=== PATIENT | female | born 1970 | race Caucasian/White ===

== ENCOUNTER 2019-06-16 13:17 | Emergency (ER) | payer OTHER ==
[2019-06-16 13:21] VITALS: BP 135/63; PULSE 74; TEMP 98; BMI 31.2
[2019-06-16] MEDS ORDERED: KETOROLAC TROMETHAMINE 30 MG/1 ML VIAL IM ONE (13:23)
[2019-06-16] MEDS ORDERED: METHOCARBAMOL 500 MG TABLET PO ONE (13:23)
--- NOTE | 2019-06-16 13:23 | PDOC ---
Rapid Medical Evaluation Chief Complaint: Pain, Acute Time Seen by Provider: 06/16/19 13:20 Medical Evaluation: 06/16/19 13:20 I have performed a brief in-person evaluation of this patient. The patient presents with a chief complaint of: RT arm pain since yesterday w/o trauma or injury. Pt took advil this AM for pain. report pain started after doing house cleaning Pertinent physical exam findings: mild tenderness over lateral deltoid muscle of RT upper arm. no shoulder or forearm tenderness. I have ordered the following: Toradol 30mg IM, Robaxin 500mg PO The patient will proceed to the ED for further evaluation. 06/16/19 13:22 Discharge Disposition - Diagnosis Right arm pain - Discharge Dispostion Condition at time of disposition: Stable - Referrals - Patient Instructions - Post Discharge Activity
[2019-06-16] MEDS ORDERED: KETOROLAC TROMETHAMINE 30 MG/1 ML VIAL ONE (14:38)
--- NOTE | 2019-06-16 14:40 | PDOC ---
History of Present Illness - General Chief Complaint: Pain, Acute Stated Complaint: RT ARM PAIN Time Seen by Provider: 06/16/19 13:20 - History of Present Illness Initial Comments: 06/16/19 14:32 CHIEF COMPLAINT: R shoulder pain HISTORY OF PRESENT ILLNESS: 48 yo F with no PMH presents to fast track with R shoulder pain since yesterday. Patient reports that she was cleaning her home when the pain began and has worsened since yesterday. Patient reports pain to R deltoid with any movement of her arm but has full flexion/extension of R elbow. No recent travel or sick contacts. PAST MEDICAL HISTORY: Denies past medical history FAMILY HISTORY: Denies SOCIAL HISTORY: Denies tobacco, alcohol, illicit drug use. SURGICAL HISTORY: Denies ALLERGIES: No known drug allergies REVIEW OF SYSTEMS General/Constitutional: Denies fever or chills. Denies weakness, weight change. HEENT: Denies change in vision. Denies ear pain or discharge. Denies sore throat. Cardiovascular: Denies chest pain or shortness of breath. Respiratory: Denies cough, wheezing, or hemoptysis. Gastrointestinal: Denies nausea, vomiting, diarrhea or constipation. Denies rectal bleeding. Genitourinary: Denies dysuria, frequency, or change in urination. Musculoskeletal: Pain to R shoulder, worse with movement. Skin and breasts: Denies rash or easy bruising. Neurologic: Denies headache, vertigo, loss of consciousness, or loss of sensation. Psychiatric: Denies depression or anxiety. PHYSICAL EXAM General Appearance: Well-appearing, appropriately dressed. No apparent distress , no intoxication. HEENT: EOMI, PERRLA, normal ENT inspection, normal voice, TMs normal, pharynx normal. No conjunctival pallor. No photophobia, scleral icterus. Neck: Supple. Trachea midline. No tenderness, rigidity, carotid bruit, stridor , lymphadenopathy, or thyromegaly. Respiratory/Chest: Lungs CTAB. No shortness of breath, chest tenderness, respiratory distress, accessory muscle use. No crackles, rales, rhonchi, stridor , wheezing, dullness Cardiovascular: RRR. S1, S2. No JVD, murmur, bradycardia, tachycardia. Vascular Pulses: Dorsalis-Pedis (R): 2+, Dorsalis-Pedis (L): 2+ Gastrointestinal/Abdominal: Normal bowel sounds. Abdomen soft, non-distended. No tenderness or rebound tenderness. No organomegaly, pulsatile mass, guarding , hernia, hepatomegaly, splenomegaly. Lymphatic: No adenopathy, tenderness. Musculoskeletal/Extremities: Tenderness to R deltoid. Full passive ROM to shoulder, limited active ROM secondary to pain. Normal inspection. FROM of all extremities, normal capillary refill. Pelvis Stable. No CVA tenderness. No tenderness to extremities, pedal edema, swelling, erythema or deformity. Integumentary: Appropriate color, dry, warm. No cyanosis, erythema, jaundice or rash Neurologic: lining folder II-XII intact. Fully oriented, alert. Appropriate mood/affect. Motor strength 5/5. No appreciable EOM palsy, facial droop or sensory deficit. Past History - Past Medical History Allergies/Adverse Reactions: Allergies Allergy/AdvReac Type Severity Reaction Status Date / Time No Known Allergies Allergy Verified 06/16/19 13:21 Home Medications: Ambulatory Orders Diclofenac Sodium 75 mg PO BID #20 tablet. 06/16/19 Methocarbamol [Robaxin -] 500 mg PO TID #21 tablet 06/16/19 COPD: No - Psycho Social/Smoking Cessation Hx Smoking History: Never smoked *Physical Exam - Vital Signs Last Vital Signs Temp Pulse Resp BP Pulse Ox 98 F 74 18 135/63 99 06/16/19 13:19 06/16/19 13:19 06/16/19 13:19 06/16/19 13:19 06/16/19 13:19 Medical Decision Making - Medical Decision Making 06/16/19 14:39 48 yo F with no PMH presents to fast track with R shoulder pain since yesterday. -Toradol -Robaxin Advised patient to take medication as prescribed and follow up with ortho if symptoms persist past 7-10 days. Advised patient of signs and symptoms for return to ED. Patient verbalized understanding and agrees to plan. Discharge - Discharge Information Problems reviewed: Yes Clinical Impression/Diagnosis: Muscle strain of upper arm Qualifiers: Encounter type: initial encounter Laterality: right Qualified Code(s): S46.911A - Strain of unspecified muscle, fascia and tendon at shoulder and upper arm level, right arm, initial encounter Condition: Stable Disposition: HOME - Admission No - Additional Discharge Information Prescriptions: Diclofenac Sodium 75 mg PO BID #20 tablet. Methocarbamol [Robaxin -] 500 mg PO TID #21 tablet - Follow up/Referral Referrals: Bryan Bishop MD [Staff Physician] - Carlitos Menendez DO [Staff Physician] - - Patient Discharge Instructions Patient Printed Discharge Instructions: DI for Shoulder Pain Additional Instructions: Please take medication as prescribed. As discussed, if your symptoms do not improve in 5-7 days, please follow up with an orthopedics for further evaluation and a possible MRI or physical therapy. If you experience any loss of sensation to your extremities, any swelling or increased pain to your shoulder or arm, please return to the ER. - Post Discharge Activity
[2019-06-16] MEDS ORDERED: METHOCARBAMOL 500 MG TABLET ONE (14:42)
== END 2019-06-16 14:54 | disposition home or self-care (01) ==
LOC: JERFT 13:17
PROC: 3E0233Z Introduction of Anti-inflammatory into Muscle, Percutaneous Approach (ICD-10-PCS; principal; 2019-06-16)
DX: S46.811A Strain of other muscles, fascia and tendons at shoulder and upper arm level, right arm, initial encounter (principal); X50.0XXA Overexertion from strenuous movement or load, initial encounter; Y93.E9 Activity, other interior property and clothing maintenance; Y92.018 Other place in single-family (private) house as the place of occurrence of the external cause; Y99.8 Other external cause status
CPT/HCPCS: 99282-25

== ENCOUNTER 2020-02-17 21:12 | Emergency (ER) | payer OTHER ==
[2020-02-17 21:20] VITALS: BP 140/80; PULSE 85; TEMP 98; BMI 33.7
[2020-02-17] MEDS ORDERED: CYCLOBENZAPRINE HCL 10 MG TABLET (FP) PO ONE (22:11)
[2020-02-17] MEDS ORDERED: KETOROLAC TROMETHAMINE 30 MG/1 ML VIAL IM ONE (22:11)
--- NOTE | 2020-02-17 22:18 | PDOC ---
History of Present Illness - General Chief Complaint: Pain Stated Complaint: RT LEG PAIN Time Seen by Provider: 02/17/20 22:10 History Source: Patient Exam Limitations: No Limitations - History of Present Illness Initial Comments: 02/17/20 22:15 49-year-old female no significant past medical history presented to the ED with right lower extremity pain. Patient states that she believes she may have pulled a muscle and has experiencing right thigh pain worse with ambulation and bending. Patient not taking medicine for the pain. Pt otherwise denies: fevers, chills, syncope, lightheadedness, dizziness, headaches, neck pain, chest pain, shortness of breath, palpitations, back pain, abdominal pain, nausea, vomiting, diarrhea, constipation. Past History - Medical History Allergies/Adverse Reactions: Allergies Allergy/AdvReac Type Severity Reaction Status Date / Time No Known Allergies Allergy Verified 02/17/20 21:20 Home Medications: Ambulatory Orders Diclofenac Sodium 75 mg PO BID #20 tablet. 06/16/19 Methocarbamol [Robaxin -] 500 mg PO TID #21 tablet 06/16/19 Cyclobenzaprine HCl [Flexeril 10 mg] 10 mg PO BID PRN #20 tablet 02/17/20 Ibuprofen [Ibu] 600 mg PO TID 10 Days #30 tablet 02/17/20 COPD: No Other medical history: arthritis - Reproductive History Is Patient Now?: No - Psycho-Social/Smoking History Smoking History: Never smoked - Substance Abuse Hx (Audit-C & DAST Scrn) How often the patient has a drink containing alcohol: Never Score: In Men: 4 or > Positive; In Women: 3 or > Positive: 0 Screen Result (Pos requires Nsg. Audit-10AR): Negative *Physical Exam - Vital Signs Last Vital Signs Temp Pulse Resp BP Pulse Ox 98 F 85 18 140/80 97 02/17/20 21:16 02/17/20 21:16 02/17/20 21:16 02/17/20 21:16 02/17/20 21:16 - Physical Exam 02/17/20 22:16 Gen: AAOx 3, no acute distress, comfortable, no signs of respiratory distress HENT: atraumatic, normocephalic with no laceration or contusion. Nasal mucosa without erythema. Oropharynx without erythema or exudates. Mucous membranes moist. EYES: PERRL, EOM intact, conjunctiva pink NECK: supple; trachea midline; no JVD, no lymphadenopathy, or thyromegaly CV: RRR no murmurs, gallops, or rubs. CHEST: CTA b/l no wheezing, rales or rhonchi ABD: +BS/ND. no TTP; soft, no rebound, no guarding EXTREMITY: no cyanosis or erythema. 2+ dorsalis pedis, posterior tibial, and radial pulse. No pedal edema; no calf swelling or tenderness SKIN: no rash, warm and dry, no diaphoresis HEME: no purpura or ecchymosis NEURO: normal speech, CN II-XII intact, sensation intact no cerebellar deficits MS: 5/5 strength in all extremities, FROM intact in all extremities except RLE RLE: no swelling, ttp to quad and hamstring muscles with inc pain on hip and knee flexion and extension, 5/5 strength, sensation intact, ambulating with limp 2/2 pain. Medical Decision Making - Medical Decision Making 02/17/20 22:17 49-year-old female with right lower extremity pain Vital signs stable Pain reproducible on range of motion most likely musculoskeletal We will administer Toradol and Flexeril in the emergency room for symptomatic relief We will reassess Patient reports improvement in pain with meds in ED Ibuprofen Flexeril sent to patient's preferred pharmacy Patient was instructed not to drive or operate heavy machinery while taking Flexeril. The patient was also instructed not to take the medication with any other sedating medications and not to drink alcohol while taking the medication. Pt appears well and is safe and stable for discharge with strict return precautions including signs and symptoms requring immediate return to the ED Supportive care instructions explained and given to pt. Reasons to return emergently to ER explained and given. Importance of follow up with PMD and other specialists as indicated stressed to pt. Pt verbalized understanding of instructions. Pt to follow up with PMD in 2 days. Discharge - Discharge Information Problems reviewed: Yes Clinical Impression/Diagnosis: Right leg pain Condition: Stable Disposition: HOME - Additional Discharge Information Prescriptions: Cyclobenzaprine HCl [Flexeril 10 mg] 10 mg PO BID PRN #20 tablet PRN Reason: Moderate Pain Ibuprofen [Ibu] 600 mg PO TID 10 Days #30 tablet - Follow up/Referral Referrals: ON STAFF,NOT [Primary Care Provider] - - Patient Discharge Instructions Patient Printed Discharge Instructions: DI for Muscle Strain Additional Instructions: please follow up with your PCP Print Language: TURKISH - Post Discharge Activity
[2020-02-17] MEDS ORDERED: KETOROLAC TROMETHAMINE 30 MG/1 ML VIAL ONE (22:22)
[2020-02-17] MEDS ORDERED: CYCLOBENZAPRINE HCL 10 MG TABLET (FP) ONE (22:23)
== END 2020-02-17 23:03 | disposition home or self-care (01) ==
LOC: JERFT 21:12
PROC: 3E0233Z Introduction of Anti-inflammatory into Muscle, Percutaneous Approach (ICD-10-PCS; principal; 2020-02-17)
DX: M79.604 Pain in right leg (principal)
CPT/HCPCS: 99284-25

== ENCOUNTER 2020-07-01 14:19 | Emergency (ER) | payer OTHER | END 2020-07-01 15:42 | disposition home or self-care (01) | LOC: JVIRT 14:19 | DX: Z20.822 Contact with and (suspected) exposure to COVID-19 (principal) | CPT/HCPCS: C9803; G2012-GT; U0003 ==

== ENCOUNTER 2020-07-11 11:59 | Emergency (ER) | payer OTHER | END 2020-07-11 12:44 | disposition home or self-care (01) | LOC: JVIRT 11:59 | DX: Z11.52 Encounter for screening for COVID-19 (principal) | CPT/HCPCS: G2251-GT; Q3014-GT ==